=== PATIENT | male | born 1985 | race Caucasian/White ===

== ENCOUNTER 2016-12-06 10:26 | Day surgery (SDC) | payer OTHER, MEDICAID ==
[2016-12-06] MEDS ORDERED: Propofol 200 MG/20 ML SDV IV ONE (11:30)
[2016-12-06] MEDS ORDERED: Midazolam 1 MG/ML 2 ML SDV IV ONE (11:30)
[2016-12-06] MEDS ORDERED: ceFAZolin 1 GM Vial IV ONE (11:30)
[2016-12-06] MEDS ORDERED: fentaNYL 100 MCG/2 ML SDV IV ONE (11:30)
[2016-12-06] MEDS ORDERED: Acetaminophen/HYDROcodone 325-5 MG Tab PO PRN (13:01)
[2016-12-06] MEDS ORDERED: Ketorolac 30 MG/ML SDV IVPUSH PRN (13:01)
[2016-12-06] MEDS ORDERED: Lactated Ringers 1,000 ML IV SCH (13:15)
[2016-12-06 14:18] VITALS: BP 136/91
--- NOTE | 2016-12-06 16:30 | CR ---
INDICATION: Closed reduction percutaneous pinning left distal Colles' fracture. INTRAOPERATIVE FLUOROSCOPY FOR CLOSED REDUCTION PERCUTANEOUS PINNING LEFT DISTAL COLLES' FRACTURE: Total fluoroscopy time 1 minute for placing 0.62 K-wires across the fracture site after a reduction. MADELYND
--- NOTE | 2016-12-06 22:38 | OR ---
DATE OF OPERATION: 12/06/2016 SURGEON: Mitch Franklin MD PREOPERATIVE DIAGNOSIS: Displaced non intra-articular closed left distal radius fracture. POSTOPERATIVE DIAGNOSIS: Displaced non intra-articular closed left distal radius fracture. PROCEDURE PERFORMED: Closed reduction with external fixation pinning and application of long-arm cast. OPERATIVE NOTE: The patient was taken to the operating room and given a light anesthetic. The patient was also given 2 g of Ancef. Once the patient was comfortable, we removed the long arm splint, washed and cleansed the area very nicely and then did a closed reduction. Following the closed reduction, we also placed the patient in Gabonese finger traps with countertraction applied. This allowed good positioning of the fracture fragments both in AP and lateral dimensions. Sterile ChloraPrep was then carried out and two 0.062 K-wires were placed from the radial styloid distally across the fracture line proximally through the radius. Good position alignment was noted, and therefore, the Jurgan balls were applied, Xeroform applied, and a long-arm cast applied. The patient tolerated the procedure well. No complications were encountered. Patient transferred to the Day Care Unit with neurovascular precautions and cast care precautions explained. /[id number] ADAL/SCOTT
--- NOTE | 2016-12-07 09:25 | CR ---
INDICATION: Follow-up closed reduction pinning and application of long arm cast left distal radius fracture. LEFT WRIST: AP and lateral views show good position and alignment having been established. VIVIANE
--- NOTE | 2016-12-08 14:03 | HP ---
ADMISSION DATE: 12/06/2016 PROBLEM: Left wrist pain. HISTORY: This 31-year-old white male, left-hand dominant, was playing softball last night when he tried to steal second base, he slid properly, but when his hand came down to break the slide, he broke his wrist. He presented to the walk- in clinic where diagnosis of a distal radius fracture was made, the patient was splinted, and sent here for definitive care and treatment. I did review the x- rays last night and made the recommendation that this patient should present to the clinic for a closed reduction under anesthesia with possible external fixation. On visiting with the patient today, he states he is healthy in all regards and has no allergies. OBJECTIVE: Today, he is resting well in a long-arm splint. He moves his fingers well. Sensation intact and equal in all dermatomal areas. Neurovascular integrity is fine. ASSESSMENT: Displaced distal radius fracture, non intra-articular. PLAN: I have recommended to the patient that we do a close reduction with application of a long-arm cast. I have also explained to him that this may not be is stable after we get it reduced, so therefore it may require external fixation of former K-wires and Jurgan balls. He understands and agrees. The patient also understands the risks, complications, prognosis, expectations, as well as the postoperative course. The patient wishes to proceed. /[id number] ADAL/SCOTT
== END 2016-12-06 14:10 | disposition home or self-care (01) ==
LOC: FB.SDS 10:26
PROVIDERS: ATTEND Orthopaedic Surgery
DX: S52.502A Unspecified fracture of the lower end of left radius, initial encounter for closed fracture (principal)
CPT/HCPCS: 01820; 25605; 73100; A9270; J0690; J2250; J2704; J3010

== ENCOUNTER 2018-06-28 13:51 | Emergency (ER) | payer BC, MEDICAID ==
[2018-06-28 15:26] LABS: ACETAMINOPHEN < 2 ug/mL (10-30)
[2018-06-28 15:29] VITALS: BP 143/103
--- NOTE | 2018-06-28 15:49 | EDM.PDOC ---
ED HPI GENERAL MEDICAL PROBLEM - General Chief Complaint: Behavioral/Psych Stated Complaint: MENTAL ISSUES Time Seen by Provider: 06/28/18 13:55 Source of Information: Reports: Patient, Family History Limitations: Reports: No Limitations - History of Present Illness INITIAL COMMENTS - FREE TEXT/NARRATIVE: c/o "heart breaking, mind breaking, I want help" pt very tangential, very difficult to get any direct answer to a question. I asked him multiple times how many children he had. He said that "I have many" and "all I want is safety and peace for all the children in the world." He told me there was Jose, who after many more questions turned out to be 8 years old , his oldest, and a girl. He was unable to tell me whether she lived with him or not. Only after talking to his sister did I learn that he had 2 younger children by another woman who are in daycare at the moment and live with there mother, that he sees them every other weekend, that he does not see Jose regularly, that he has an ex-, that he has conflict with his ex and the other former girlfriend. He could not tell me his work hx. 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 He called his sister after losing his job. She went to his house, he asked for help, she talked to him for an hour before he agreed to come to the ED. Pt denies SI/HI. Was very edgy, asked my name multiple times and I showed him my name tag multiple times, said I could not touch him "nobody touches me", then agreed to let me examine his neck for lymph nodes and to listen to his heart and lungs, would not let me do any other physical exam. Says he did not sleep last night, but gave no reason why. Sister says "he has been like this for 2-3 months." Denies substance used but was vague, hinted that he had smoked THC in past but would not say when, denies alcohol and cigs, says "cigarettes kill you" rather than saying whether he smoked or not. He had a card for his counselor: Dinh Felipe, [facility] [employer], [address] [place] [address], . Dinh said she had seen him once 03/20/18, made a dx of anxiety unspecified, said he was on no meds and seemed to be doing well. She gave him her card and told him to come back whenever he felt the need. He had been seen previously by several other counselors. Other dx were alcohol abuse and anger management. No other psych dx. no record of previous psych hospitalizations. Pt is talking to mental health worker now on telemedicine. - Related Data Allergies Allergy/AdvReac Type Severity Reaction Status Date / Time No Known Allergies Allergy Verified 12/06/16 10:52 Home Meds: Home Meds NK [No Known Home Meds] 02/01/15 [History] Social & Family History - Caffeine Use Caffeine Use: Reports: Coffee, Energy Drinks Caffeine Use Comment: 3 ED ROS GENERAL - Review of Systems Review Of Systems: See Below Constitutional: Reports: No Symptoms HEENT: Reports: No Symptoms Respiratory: Reports: No Symptoms Cardiovascular: Reports: No Symptoms Endocrine: Reports: No Symptoms GI/Abdominal: Reports: No Symptoms : Reports: No Symptoms Musculoskeletal: Reports: No Symptoms Skin: Reports: No Symptoms Neurological: Reports: No Symptoms Psychiatric: Reports: Agitation, Anxiety, Confusion, Mood Lability. Denies: Hallucinations, Homicidal Ideation, Suicidal Ideation Hematologic/Lymphatic: Reports: No Symptoms Immunologic: Reports: No Symptoms ED EXAM, GENERAL - Physical Exam Exam: See Below Exam Limited By: Altered Mental Status General Appearance: Alert, WD/WN, Anxious, Moderate Distress Eye Exam: Bilateral Eye: Normal Inspection Nose: Normal Inspection, Normal Mucosa, No Blood, Nasal Swelling Throat/Mouth: Normal Inspection, Normal Lips, Normal Voice, No Airway Compromise Head: Atraumatic, Normocephalic Neck: Normal Inspection, Supple, Non-Tender, Full Range of Motion. No: Lymphadenopathy (R), Lymphadenopathy (L) Respiratory/Chest: No Respiratory Distress, Lungs Clear, Normal Breath Sounds, No Accessory Muscle Use, Chest Non-Tender Back Exam: Normal Inspection, Full Range of Motion Extremities: Normal Inspection Psychiatric: Anxious, Other (tangiental, hyperkinetic, no SI/HI, trouble focusing, poor concentration) Course - Vital Signs Last Recorded V/S: Last Vital Signs Temp Pulse 91 06/28/18 13:51 Resp 18 06/28/18 13:51 BP 143/103 H 06/28/18 13:51 Pulse Ox 97 06/28/18 13:51 - Orders/Labs/Meds Orders: Active Orders 24 hr Category Date Time Status Head wo Cont [CT] Stat Exams 06/28/18 14:47 Taken Labs: Laboratory Tests 06/28/18 06/28/18 06/28/18 Range/Units 14:42 14:42 14:45 WBC 10.4 (4.5-12.0) X10-3/uL RBC 5.19 (4.30-5.75) x10(6)uL Hgb 16.0 H (11.5-15.5) g/dL Hct 46.6 (30.0-51.3) % MCV 89.7 (80-96) fL MCH 30.8 (27.7-33.6) pg MCHC 34.3 (32.2-35.4) g/dL RDW 12.3 (11.5-15.5) % Plt Count 402 H (125-369) X10(3)uL MPV 7.1 L (7.4-10.4) fL Neut % (Auto) 80.5 (46-82) % Lymph % (Auto) 13.6 (13-37) % Edgar % (Auto) 4.4 (4-12) % Eos % (Auto) 0 L (1.0-5.0) % Baso % (Auto) 1 (0-2) % Neut # (Auto) 8.4 H (1.6-8.3) # Lymph # (Auto) 1.4 (0.6-5.0) # Edgar # (Auto) 0.5 (0.0-1.3) # Eos # (Auto) 0.0 (0.0-0.8) # Baso # (Auto) 0.1 (0.0-0.2) # Sodium (135-145) mmol/L Potassium (3.5-5.3) mmol/L Chloride (100-110) mmol/L Carbon Dioxide (21-32) mmol/L BUN (7-18) mg/dL Creatinine (0.70-1.30) mg/dL Est Cr Clr Drug Dosing Estimated GFR (MDRD) (>60) BUN/Creatinine Ratio (9-20) Glucose (80-116) mg/dL Calcium (8.6-10.2) mg/dL Total Bilirubin (0.1-1.3) mg/dL AST (5-25) IU/L ALT (12-36) U/L Alkaline Phosphatase (56-112) IU/L Total Protein (6.0-8.0) g/dL Albumin (3.5-5.2) g/dL Globulin g/dL Albumin/Globulin Ratio TSH, Ultra Sensitive (0.36-3.74) IU/mL Urine Color Yellow (YELLOW) Urine Appearance Clear (CLEAR) Urine pH 6.5 (5.0-6.5) Ur Specific [place] 1.020 (1.010-1.025) Urine Protein Negative (NEGATIVE) mg/dL Urine Glucose (UA) Normal (NEGATIVE) mg/dL Urine Ketones Negative (NEGATIVE) mg/dL Urine Occult Blood Trace (NEGATIVE) Urine Nitrite Positive H (NEGATIVE) Urine Bilirubin Negative (NEGATIVE) Urine Urobilinogen Normal (NEGATIVE) mg/dL Ur Leukocyte Esterase Negative (NEGATIVE) Salicylates (2.8-20.0) mg/dL Urine Opiates Screen Negative (NEGATIVE) Ur Oxycodone Screen Negative (NEGATIVE) Ur Propoxyphene Screen Negative (NEGATIVE) Acetaminophen (10-30) ug/mL Ur Barbituates Screen Negative (NEGATIVE) Ur Tricyclics Screen Negative (NEGATIVE) Ur Phencyclidine Scrn Negative (NEGATIVE) Ur Amphetamine Screen Negative (NEGATIVE) Urine MDMA Screen Negative (NEGATIVE) U Benzodiazepines Scrn Negative (NEGATIVE) U Cocaine Metab Screen Negative (NEGATIVE) U Marijuana (THC) Screen Negative (NEGATIVE) Ethyl Alcohol (<0.03) % 06/28/18 06/28/18 Range/Units 14:45 14:45 WBC (4.5-12.0) X10-3/uL RBC (4.30-5.75) x10(6)uL Hgb (11.5-15.5) g/dL Hct (30.0-51.3) % MCV (80-96) fL MCH (27.7-33.6) pg MCHC (32.2-35.4) g/dL RDW (11.5-15.5) % Plt Count (125-369) X10(3)uL MPV (7.4-10.4) fL Neut % (Auto) (46-82) % Lymph % (Auto) (13-37) % Edgar % (Auto) (4-12) % Eos % (Auto) (1.0-5.0) % Baso % (Auto) (0-2) % Neut # (Auto) (1.6-8.3) # Lymph # (Auto) (0.6-5.0) # Edgar # (Auto) (0.0-1.3) # Eos # (Auto) (0.0-0.8) # Baso # (Auto) (0.0-0.2) # Sodium 139 (135-145) mmol/L Potassium 3.8 (3.5-5.3) mmol/L Chloride 104 (100-110) mmol/L Carbon Dioxide 26 (21-32) mmol/L BUN 11 (7-18) mg/dL Creatinine 0.9 (0.70-1.30) mg/dL Est Cr Clr Drug Dosing TNP Estimated GFR (MDRD) > 60 (>60) BUN/Creatinine Ratio 12.2 (9-20) Glucose 115 (80-116) mg/dL Calcium 9.3 (8.6-10.2) mg/dL Total Bilirubin 0.8 (0.1-1.3) mg/dL AST 16 (5-25) IU/L ALT 28 (12-36) U/L Alkaline Phosphatase 66 (56-112) IU/L Total Protein 7.6 (6.0-8.0) g/dL Albumin 4.6 (3.5-5.2) g/dL Globulin 3.0 g/dL Albumin/Globulin Ratio 1.5 TSH, Ultra Sensitive 1.02 (0.36-3.74) IU/mL Urine Color (YELLOW) Urine Appearance (CLEAR) Urine pH (5.0-6.5) Ur Specific [place] (1.010-1.025) Urine Protein (NEGATIVE) mg/dL Urine Glucose (UA) (NEGATIVE) mg/dL Urine Ketones (NEGATIVE) mg/dL Urine Occult Blood (NEGATIVE) Urine Nitrite (NEGATIVE) Urine Bilirubin (NEGATIVE) Urine Urobilinogen (NEGATIVE) mg/dL Ur Leukocyte Esterase (NEGATIVE) Salicylates 1.4 L (2.8-20.0) mg/dL Urine Opiates Screen (NEGATIVE) Ur Oxycodone Screen (NEGATIVE) Ur Propoxyphene Screen (NEGATIVE) Acetaminophen < 2 L (10-30) ug/mL Ur Barbituates Screen (NEGATIVE) Ur Tricyclics Screen (NEGATIVE) Ur Phencyclidine Scrn (NEGATIVE) Ur Amphetamine Screen (NEGATIVE) Urine MDMA Screen (NEGATIVE) U Benzodiazepines Scrn (NEGATIVE) U Cocaine Metab Screen (NEGATIVE) U Marijuana (THC) Screen (NEGATIVE) Ethyl Alcohol < 0.03 (<0.03) % - Re-Assessments/Exams Free Text/Narrative Re-Assessment/Exam: 06/28/18 17:09 pt more calm, anxious but less so, hyperkinetic but less so d/w Nicole RN at telepsychiatrry, she said his PHQ-9 score was 16/27, that he met criteria for depression and anxiety and possible ivory that it was not clear whether he quit or was fired today, he told Nicole that he does not like to be told what to do and that his boss said do not come back until you are better no SI/HI, no hallucinations per Nicole, she does not think he meets criteria for admission and recommended outpt f/u pt meets criteria for anxiety and hypomania by my assessment, not depression, I agree that he is not a risk for injury to self call placed to his counselor Dinh at 4:50 PM, she was still at work, with a client, Mandy said that Dinh would call me back 06/28/18 17:40 pt advised that meds could help with sleep and anxiety and that he should discuss this with PCP Dana Becker, he said "I'm not interested in meds" Dinh said she could see pt at noon in 5 days Departure - Departure Time of Disposition: 17:36 Disposition: Home, Self-Care 01 Condition: Fair Clinical Impression: Acute adjustment disorder with anxiety, Insomnia, Work stress, Stress at home, Hypomania - Discharge Information *PRESCRIPTION DRUG MONITORING PROGRAM REVIEWED*: Not Applicable *COPY OF PRESCRIPTION DRUG MONITORING REPORT IN PATIENT TRUDY: Not Applicable Instructions: Panic Attack, Stress Referrals: Charisse Becker, GENERATOR REPAIRER [Primary Care Provider] - Forms: ED Department Discharge, ED Return to Work/School Form Additional Instructions: See Dinh on Monday next week at noon at her office. See Dana Becker in 4 days. Stay in a safe environment. Return to ED if you feel worse or feel unsafe towards yourself or others. - My Orders Last 24 Hours: My Active Orders 06/28/18 14:47 Head wo Cont [CT] Stat - Assessment/Plan Last 24 Hours: My Active Orders 06/28/18 14:47 Head wo Cont [CT] Stat
--- NOTE | 2018-06-29 07:16 | CT ---
INDICATION: Manic, confusion, mental status change. CT HEAD WITHOUT CONTRAST: Spiral examination of the brain in the axial projection was obtained with sagittal and coronal reconstructions 06/28/18. No comparison study was available. Total exam DLP = 677.72 mGy-cm. There is noted thickening of the linings of multiple anterior ethmoidal air cells anteriorly and bilaterally. There also appears to be thickening of the linings of the frontal air cells. Mastoid air cells were well aerated. No cranial abnormality was identified. No shift of midline structures, ventricular abnormalities or abnormal areas of density were identified--no acute intracranial abnormality was seen--no bleeding site or hematoma was noted. IMPRESSION: Except for question of ethmoidal and frontal sinusitis, CT brain unremarkable. Report was called to Dr. Sánchez at 1513 hours. [facility]
== END 2018-06-28 17:48 | disposition home or self-care (01) ==
LOC: FB.ED 13:51
DX: F43.22 Adjustment disorder with anxiety (principal); F51.02 Adjustment insomnia; F43.9 Reaction to severe stress, unspecified; F30.8 Other manic episodes
CPT/HCPCS: 36415; 70450; 80053; 80305; 81003; 84443; 85025; 99284; G0480